=== PATIENT | male | born 1955 ===

== ENCOUNTER 2016-06-11 19:42 | Emergency (ER) | payer OTHER ==
[2016-06-11 19:42] VITALS: BMI 34.5
[2016-06-11 19:51] VITALS: RESP 20; TEMP 98.4
[2016-06-11] MEDS ORDERED: Albuterol-Ipratrop 3 mg / 0.5 (3 ml) UD INH STA (20:22)
--- NOTE | 2016-06-11 20:36 | ED PDOC ---
HPI: SOB/CHF/COPD Time Seen by Provider: 06/11/16 20:01 Chief Complaint (Nursing): Shortness Of Breath Chief Complaint (Provider): Shortness of breath History Per: Patient History/Exam Limitations: no limitations Onset/Duration Of Symptoms: Days (x2) Additional History Per: Patient Additional Complaint(s): Cliff Vela is a 60 year old male with a past medical history of hypertension , diabetes, high cholesterol and CVA who presents to the ED with chief complaints of difficulty breathing onset for two days prior to arrival. Asociated symptoms include mild diarrhea and bilateral leg swelling but denies any fever, cough, chest pain, abdomen pain and vomiting. Patient admits to taking medications as instructed. Primary care physician is Dr. Perkins Past Medical History Reviewed: Historical Data, Nursing Documentation, Vital Signs Vital Signs: Last Vital Signs Temp 98.4 F 06/11/16 19:47 Pulse 95 H 06/11/16 21:06 Resp 20 06/11/16 19:47 BP 135/81 06/11/16 21:56 Pulse Ox 99 06/11/16 21:06 - Medical History PMH: Bipolar Disorder, Depression, Diabetes, HTN, Hypercholesterolemia, Sleep Apnea Denies: HIV, Chronic Kidney Disease - Surgical History Surgical History: No Surg Hx - Family History Family History: States: Unknown Family Hx - Home Medications Home Medications: Ambulatory Orders Medication Instructions Recorded Aspirin [Aspirin EC] 81 mg PO DAILY 05/09/14 Atorvastatin Calcium [Lipitor] 20 mg PO DAILY 05/09/14 Carvedilol [Coreg] 25 mg PO BID 05/09/14 Divalproex [Carolin HENNESSY(*BID*)] 1,000 mg PO HS 05/09/14 Ergocalciferol (Vitamin D2) 50,000 unit PO Q7D 05/09/14 [Vitamin D2] GlipiZIDE [Glucotrol] 10 mg PO BID 05/09/14 Lisinopril 10 mg PO DAILY 05/09/14 MetFORMIN [glucoPHAGE] 1,000 mg PO BID 05/09/14 amLODIPine [Norvasc] 10 mg PO DAILY 05/09/14 Ascorbic Acid [Vitamin C 500 mg 500 mg PO DAILY #0 tab 05/10/14 Tab] Insulin Glargine, Recombina 36 units SQ HS 10/20/15 [Lantus] Albuterol HFA [Ventolin HFA 90 1 - 2 puff IH Q4 PRN #1 inhaler 11/15/15 mcg/actuation (8 g)] Multivitamin/Iron/Folic Acid 1 tab PO DAILY 11/15/15 [Centrum Complete Multivit Tab] fluPHENAZine [Prolixin] 2.5 mg PO HS 11/15/15 Meclizine [Meclizine*] 25 mg PO BID #30 tab 02/17/16 - Allergies Allergies/Adverse Reactions: Allergies Allergy/AdvReac Type Severity Reaction Status Date / Time hydrochlorothiazide AdvReac DIZZINESS Verified 10/20/15 06:45 Wells Criteria for PE - Wells Criteria for Pulmonary Embolism Clinical Signs and Symptoms of DVT: No P.E is #1 Diagnosis, or Equally Likely: No Heart Rate >100: No Immobilization at least 3 days;Surgery previous 4 weeks: No Previous, objectively diagnosed PE or DVT: No Hemoptysis: No Malignancy w/treatment within 6 months, or palliative: No Total Score: 0 Review of Systems ROS Statement: Except As Marked, All Systems Reviewed And Found Negative Constitutional: Negative for: Fever Cardiovascular: Negative for: Chest Pain Respiratory: Positive for: Shortness of Breath (x2days). Negative for: Cough Gastrointestinal: Positive for: Diarrhea (Mild for 2 days). Negative for: Nausea, Vomiting, Abdominal Pain Musculoskeletal: Positive for: Other (Bilateral leg swelling, pedal edema) Physical Exam - Reviewed Nursing Documentation Reviewed: Yes Vital Signs Reviewed: Yes - Physical Exam Appears: Positive for: Well, No Acute Distress. Negative for: Uncomfortable Head Exam: Positive for: ATRAUMATIC, NORMAL INSPECTION, NORMOCEPHALIC Skin: Positive for: Normal Color, Warm, Dry Eye Exam: Positive for: Normal appearance, EOMI, PERRL ENT: Positive for: Normal ENT Inspection Neck: Positive for: Normal, Painless ROM, Supple Cardiovascular/Chest: Positive for: Regular Rate, Rhythm, Chest Non Tender. Negative for: Murmur, Tachycardia Respiratory: Positive for: Decreased Breath Sounds (Bilaterally), Respiratory Distress (Mild). Negative for: Wheezing Gastrointestinal/Abdominal: Positive for: Normal Exam, Soft, Distended ( Chronically). Negative for: Tenderness Back: Positive for: Normal Inspection Extremity: Positive for: Normal ROM Neurologic/Psych: Positive for: Alert, Oriented - Laboratory Results Result Diagrams: 06/11/16 20:48 05/05/17 20:48 - ECG ECG: Positive for: Interpreted By Me, Viewed By Me ECG Rhythm: Positive for: Normal QRS, Normal ST Segment, Sinus Rhythm, Nonspecific Changes Rate: 95 O2 Sat by Pulse Oximetry: 99 (RA) Pulse Ox Interpretation: Normal - Radiology X-Ray: Interpreted by Me, Viewed By Me X-Ray Interpretation: No Acute Disease Medical Decision Making Medical Decision Makin: Initial Impression:CHF, Acute renal failure, COPD, Obstructive sleep apnea. Initial Plan: * EKG * B-type Natriuretic Peptide * Badic Metabolic panel * Thyroid stimulating hormone * Valproic acid * EKG ED Ednurtx * CBC with differentials * Chest one view RAD * Albuterol/ Ipratropium 3ml * Nitroglycerin 0.4mg * Re-Eval 2200 Pt is significantly improved. No dyspnea. Ambulated without dyspnea. Pt reports JAZZ. Pt reports cardiac echo done 5 m ago and that was normal. At this time there is no evidence of CHF or COPD. Dyspnea is resolved. Follow up with PCP in 3 days. Scribe Attestation: Documented by Remington Brower acting as a scribe for Dr. Aj Collins MD. Provider Scribe Attestation: All medical record entries made by the Scribe were at my direction and personally dictated by me. I have reviewed the chart and agree that the record accurately reflects my personal performance of the history, physical exam, medical decision making, and the department course for this patient. I have also personally directed, reviewed, and agree with the discharge instructions and disposition. Disposition - Clinical Impression Clinical Impression: Dyspnea, JAZZ (obstructive sleep apnea), Leg swelling - Patient ED Disposition Is Patient to be Admitted: Yes Doctor Will See Patient In The: Office Counseled Patient/Family Regarding: Studies Performed, Diagnosis, Need For Followup - Disposition Referrals: Qasim Perkins MD [Family Provider] - Disposition: Routine/Home Disposition Time: 22:30 Condition: GOOD Additional Instructions: Return for worsening. Follow up with your PCP in 2-3 days. Instructions: Leg Edema (ED)
[2016-06-11] MEDS ORDERED: Albuterol-Ipratrop 3 mg / 0.5 (3 ml) UD ONE (20:46)
[2016-06-11 21:04] VITALS: PULSE 95
[2016-06-11 21:09] LABS: BLOOD UREA NITROGEN 20 mg/dl (9-20); CALCIUM 9.3 mg/dL (8.4-10.2); CARBON DIOXIDE 26 mmol/L (22-30); CHLORIDE 105 mmol/L (98-107); GFR AFRICAN-AMERICAN > 60; GLUCOSE,RANDOM 183 mg/dL (75-110); POTASSIUM 4.2 MMOL/L (3.6-5.0); SODIUM 142 mmol/l (132-148)
[2016-06-11 21:11] LABS: BASO # 0.1 K/uL (0.0-0.2); BASO % 0.9 % (0.0-2.0); EOS # 0.1 K/uL (0.0-0.7); EOS % 1.9 % (0.0-4.0); HEMATOCRIT 38.3 % (35.0-51.0); LYMPH # 1.2 K/uL (1.0-4.3); LYMPH % 16.8 % (20.0-40.0); MEAN CORPUSCULAR HEMOGLOBIN 33.8 pg (27.0-31.0); MEAN CORPUSCULAR HGB CONC 34.5 g/dL (33.0-37.0); MEAN PLATELET VOLUME 8.7 fl (7.2-11.7); MONO # 0.6 K/uL (0.0-0.8); MONO % 7.8 % (0.0-10.0); NEUT # 5.3 K/uL (1.8-7.0); NEUT % 72.6 % (50.0-75.0); NRBC % 0.1 % (0.0-0.0); RED CELL DISTRIBUTION WIDTH 13.6 % (11.5-14.5); WHITE BLOOD COUNT 7.4 K/uL (4.8-10.8)
[2016-06-11 21:38] LABS: THYROID STIMULATING HORMONE 1.48 mIU/ML (0.46-4.68)
[2016-06-11 21:54] VITALS: BP 135/81
[2016-06-11 22:49] VITALS: O2SAT 99
--- NOTE | 2016-06-12 08:35 | RAD ---
PROCEDURE: CHEST RADIOGRAPH, 1 VIEW HISTORY: dyspnea COMPARISON: 11/15/2015 FINDINGS: LUNGS: Low lung volumes without focal infiltrate. Exam is limited by body habitus. PLEURA: No pneumothorax or pleural fluid seen. CARDIOVASCULAR: Normal. OSSEOUS STRUCTURES: No significant abnormalities. VISUALIZED UPPER ABDOMEN: Normal. OTHER FINDINGS: None. IMPRESSION: Limited exam secondary to body habitus and projection. Low lung volumes. No focal infiltrate or CHF seen. No new infiltrate from prior study.
--- NOTE | 2016-06-12 09:27 | CARD ---
APPROVED REPORT EKG Measurement Heart [id number] <Conclusion> Normal sinus rhythm Low voltage QRS Nonspecific T wave abnormality Abnormal ECG
== END 2016-06-11 23:09 | disposition home or self-care (01) ==
LOC: H.ER 19:42
DX: R06.00 Dyspnea, unspecified (principal); G47.30 Sleep apnea, unspecified; R60.0 Localized edema; E11.9 Type 2 diabetes mellitus without complications; E78.00 Pure hypercholesterolemia, unspecified; F31.9 Bipolar disorder, unspecified; I10 Essential (primary) hypertension; I50.9 Heart failure, unspecified; J44.9 Chronic obstructive pulmonary disease, unspecified; N17.9 Acute kidney failure, unspecified; Z79.4 Long term (current) use of insulin; Z79.82 Long term (current) use of aspirin; Z79.84 Long term (current) use of oral hypoglycemic drugs

== ENCOUNTER 2016-11-22 14:02 | Observation (INO) | payer OTHER ==
[2016-11-22 14:03] VITALS: BMI 34.5
--- NOTE | 2016-11-22 14:35 | ED PDOC ---
HPI: Psych/Substance Abuse Time Seen by Provider: 11/22/16 14:14 Chief Complaint (Nursing): Psychiatric Evaluation Chief Complaint (Provider): Psychiatric Evaluation History Per: Patient History/Exam Limitations: no limitations Onset/Duration Of Symptoms: Days Current Symptoms Are (Timing): Still Present Additional History Per: EMS Additional Complaint(s): Cliff is a 60 y/o male who was brought to the ED by EMS for psychiatric evaluation. Per EMS, they were called due to bizarre behavior, and were told patient is noncompliant with medications for bipolar disorder. Patient denies having any psychiatric history and reports he is only taking medications for blood sugar, blood pressure, and cholesterol. Requesting to go home, denies having any physical complaints. States he does not know why EMS was called. PMD: Provider TBD Past Medical History Reviewed: Historical Data, Nursing Documentation, Vital Signs Vital Signs: Last Vital Signs Temp 97 F L 11/22/16 14:14 Pulse 124 H 11/22/16 14:14 Resp 18 11/22/16 14:14 BP 183/101 H 11/22/16 14:14 Pulse Ox 96 11/22/16 14:14 - Medical History PMH: Bipolar Disorder, Depression, Diabetes, HTN, Hypercholesterolemia, Sleep Apnea Denies: HIV, Chronic Kidney Disease - Family History Family History: States: Unknown Family Hx - Home Medications Home Medications: Ambulatory Orders Medication Instructions Recorded Aspirin [Aspirin EC] 81 mg PO DAILY 05/09/14 Atorvastatin Calcium [Lipitor] 20 mg PO DAILY 05/09/14 Carvedilol [Coreg] 25 mg PO BID 05/09/14 Divalproex [Depakote DR(*BID*)] 1,000 mg PO HS 05/09/14 Ergocalciferol (Vitamin D2) 50,000 unit PO Q7D 05/09/14 [Vitamin D2] GlipiZIDE [Glucotrol] 10 mg PO BID 05/09/14 Lisinopril 10 mg PO DAILY 05/09/14 MetFORMIN [glucoPHAGE] 1,000 mg PO BID 05/09/14 amLODIPine [Norvasc] 10 mg PO DAILY 05/09/14 Ascorbic Acid [Vitamin C 500 mg 500 mg PO DAILY #0 tab 05/10/14 Tab] Insulin Glargine, Recombina 36 units SQ HS 10/20/15 [Lantus] Albuterol HFA [Ventolin HFA 90 1 - 2 puff IH Q4 PRN #1 inhaler 11/15/15 mcg/actuation (8 g)] Multivitamin/Iron/Folic Acid 1 tab PO DAILY 11/15/15 [Centrum Complete Multivit Tab] fluPHENAZine [Prolixin] 2.5 mg PO HS 11/15/15 Meclizine [Meclizine*] 25 mg PO BID #30 tab 02/17/16 - Allergies Allergies/Adverse Reactions: Allergies Allergy/AdvReac Type Severity Reaction Status Date / Time hydrochlorothiazide AdvReac DIZZINESS Verified 11/22/16 14:10 Review of Systems ROS Statement: Except As Marked, All Systems Reviewed And Found Negative Musculoskeletal: Negative for: Other (any injury/complaint) Physical Exam - Reviewed Nursing Documentation Reviewed: Yes Vital Signs Reviewed: Yes - Physical Exam Appears: Positive for: Well, Non-toxic, No Acute Distress Head Exam: Positive for: ATRAUMATIC, NORMAL INSPECTION, NORMOCEPHALIC Skin: Positive for: Normal Color, Warm, Dry Eye Exam: Positive for: Normal appearance Neck: Positive for: Normal Cardiovascular/Chest: Positive for: Regular Rate, Rhythm. Negative for: Murmur Respiratory: Positive for: Normal Breath Sounds. Negative for: Respiratory Distress Extremity: Positive for: Normal ROM. Negative for: Pedal Edema, Deformity Neurologic/Psych: Positive for: Alert, Oriented - Laboratory Results Result Diagrams: 11/22/16 17:00 11/22/16 17:00 - ECG O2 Sat by Pulse Oximetry: 96 (RA) Pulse Ox Interpretation: Normal Medical Decision Making Medical Decision Making: Time: 14:20 Initial Plan: --Crisis made aware of patient --Placed on 1:1 observation due to high risk of elopement Time: 16:44 --Urine drug screen --Alcohol serum --CMP --CBC --Urinalysis Time: 17:50 --Chest X-Ray --EKG Labs reviewed. Blood sugar is 350. Chest X-Ray read by me, no acute cardiopulmonary disease. Discussed case w/ private household worker. Patient is to be screened for JC. Time: 20:49 Accucheck done. Finger stick is 291. 21:12. Ordered 3 units SC Insulin. 22:30 Additional 4 units of SC insuling for glucose 270 ordered and patients lisinopril 10mg PO Endorsed pending re-evaluation of BP and glucose. Scribe Attestation: Documented by Shea Cordon, acting as a scribe for Mary Singer PA-C Provider Scribe Attestation: All medical record entries made by the Scribe were at my direction and personally dictated by me. I have reviewed the chart and agree that the record accurately reflects my personal performance of the history, physical exam, medical decision making, and the department course for this patient. I have also personally directed, reviewed, and agree with the discharge instructions and disposition. Disposition - Clinical Impression Clinical Impression: Schizophrenia - Patient ED Disposition Is Patient to be Admitted: Transfer of Care - Disposition Disposition: Transfer of Care Disposition Time: 23:30 Condition: GOOD Forms: [employer] (Azerbaijani)
[2016-11-22 17:23] LABS: HEMATOCRIT 42.4 % (35.0-51.0); MEAN CELL VOLUME 97.8 fl (80.0-94.0); MEAN CORPUSCULAR HEMOGLOBIN 33.4 pg (27.0-31.0); MEAN CORPUSCULAR HGB CONC 34.1 g/dL (33.0-37.0); RED CELL DISTRIBUTION WIDTH 13.6 % (11.5-14.5); WHITE BLOOD COUNT 8.2 K/uL (4.8-10.8)
[2016-11-22 17:31] LABS: URINE BACTERIA RARE (<OCC); URINE BILIRUBIN NEGATIVE (NEGATIVE); URINE BLOOD SMALL (NEGATIVE); URINE COLOR YELLOW (YELLOW); URINE GLUCOSE (UA) >=500 mg/dL (Normal); URINE KETONE 80 mg/dL (NEGATIVE); URINE LEUKOCYTE ESTERASE NEG Leu/uL (Negative); URINE PROTEIN 100 mg/dL (NEGATIVE)
[2016-11-22 17:35] LABS: ALB/GLOB RATIO 1.2 (1.0-2.1); ALCOHOL SERUM < 10 mg/dl (0-10); ALKALINE PHOSPHATASE 120 U/L (38-126); ALT/SGPT 82 U/L (21-72); AST/SGOT 66 U/L (17-59); BILIRUBIN,TOTAL 2.6 mg/dl (0.2-1.3); BLOOD UREA NITROGEN 17 mg/dl (9-20); CALCIUM 9.8 mg/dL (8.4-10.2); CARBON DIOXIDE 26 mmol/L (22-30); CHLORIDE 102 mmol/L (98-107); GFR AFRICAN-AMERICAN > 60; GLUCOSE,RANDOM 350 mg/dL (75-110); SODIUM 140 mmol/l (132-148); TOTAL PROTEIN 8.3 G/DL (6.3-8.2)
[2016-11-22 17:39] LABS: POTASSIUM 4.4 MMOL/L (3.6-5.0)
[2016-11-22 17:48] LABS: RBC URINE 12 /hpf (0-3); WBC URINE 3 /hpf (0-5)
[2016-11-22] MEDS ORDERED: Insulin Regular 100 units/ml SC STA ×2 (21:12→22:33)
[2016-11-22] MEDS ORDERED: Insulin Regular 100 units/ml ONE ×2 (21:15→22:46)
[2016-11-23] MEDS ORDERED: Sodium Chloride 0.9% 1,000 ML IV STA ×4 (00:24→04:37)
--- NOTE | 2016-11-23 03:02 | ED PDOC ---
- Laboratory Results Result Diagrams: 11/22/16 17:00 11/22/16 17:00 - ECG O2 Sat by Pulse Oximetry: 97 (RA) Pulse Ox Interpretation: Normal Medical Decision Making Medical Decision Making: Time: 00:00 --Patient was signed out to me by Dr. Antolin Valdez pending [facility] screening and reevaluation of Accuchecks. Time: 7:00 --Patient has had 2 consecutive Accuchecks below 200 as insisted upon by [facility] psychiatric staff. --Patient continues to be medically stable for psychiatric admission. --Patient is signed out by me to Dr. Brenner pending [facility] screening and reevaluation. Scribe Attestation: Documented by Estrada Baker, acting as a scribe for Tu Bond MD Provider Scribe Attestation: All medical record entries made by the Scribe were at my direction and personally dictated by me. I have reviewed the chart and agree that the record accurately reflects my personal performance of the history, physical exam, medical decision making, and the department course for this patient. I have also personally directed, reviewed, and agree with the discharge instructions and disposition. Disposition - Clinical Impression Clinical Impression: Schizophrenia - POA Present On Arrival: None - Disposition Disposition: Transfer of Care Disposition Time: 07:00 Condition: GOOD Forms: [employer] (Estonian) Patient Signed Over To: Griffin Brenner
[2016-11-23] MEDS ORDERED: Insulin Regular 100 units/ml IV ONE (04:37)
--- NOTE | 2016-11-23 08:02 | CARD ---
APPROVED REPORT EKG Measurement Heart [id number] <Conclusion> Normal sinus rhythm Anterior infarct, age undetermined Abnormal ECG
--- NOTE | 2016-11-23 09:44 | RAD ---
[place] [facility] [place]: 06/12/[place]. FINDINGS: LUNGS: The lungs are well inflated and clear. PLEURA: No significant pleural effusion identified, no pneumothorax apparent. CARDIOVASCULAR: Normal. OSSEOUS STRUCTURES: No significant abnormalities. VISUALIZED UPPER ABDOMEN: Normal. OTHER FINDINGS: None. IMPRESSION: No active pulmonary disease.
--- NOTE | 2016-11-23 09:54 | CP.PCM.CON ---
History of Present Illness - History of Present Illness History of Present Illness: Psychiatry Consult CC: You did this to me Following information is from the initial crisis evaluation as the data analyst report writer was unable to obtain any relevant information from the patient who was lethargic from being medicated due to acute agitation. He denied taking any medication, denied AH/VH/SI/HI. A + O x 1. HPI: 60 year old male entering into the ED with complaints from [employer] and mobile response. Patient was acting bizarre at his home yesterday. He was throwing items around the home and screaming off of the balcony. He was playing his music very loudly at the early hours of the morning. Patient's neighbors called the police who in turn called mobile response. Patient is not crazy he states and he did not do anything to anyone. Patient stated that he is doing well right now and that he does not need admission. Patient stated he is not Bipolar and that he has no psychiatric history. He did however report that he used to take Depakote 500 mg and also Prolixin. He denied any treatment except for going for medication at the clinic. He denied any SI/HI and A/V/T. He reported no sleep disturbances and stated he is eating well. He denied any legal history, trauma, and substance abuse history. Patient stated that there is a history of mental illness in his family such as his ex- and his aunt. He reported not knowing their diagnosis but felt it could be Bipolar. Patient also discussed a cousin on his mother's side as a drinker. Patient was orientated times two as he did not know his reason for being here. Patient was cooperative during the assessment. His thinking was bizarre and a times he was paranoid. Patient had a flight of ideas and was disorganized at times. CW discussed the admission process with the patient but he was not open to admission. Patient stated he wanted [place] be [place] [facility] Patient's daughter Arti Floyd [phone] stated that the patient has been off of medications for at least a month. She stated he is very religiously preoccupied at this time. She stated he is normally Methodist but when he is off of his medication he is a Ep[employer]. He will become psychotic when someone states that they are something other than Episcopal. Patient's daughter stated that he has been acting bizarre lately and was seen walking around [place] with his penis out and also acting erratic. He also walks around the town with no shoes on. Patient's daughter stated that the neighbors give her report of his behavior. He became aggressive with his and she became afraid and left the home for a few days. She stated that the patient will deny that he needs his medications. Gerald, from [employer] called and stated that the patient was in the house throwing items around and screaming off of the balcony. Patient was playing loud music and disturbing his neighbors so they called [place] Police [employer]. Patient has been acting bizarre by accounts of the neighbors. PMHx: HTN, HLD, DM MSE: Patient lying in bed, irritable, A + O x 1, Denies AH/VH/SI/HI, unable to obtain other pertinent info. Poor eye contact, speech loud and irritated. Impression: 60 yo male presents acutely decompensated w/ h/o Bipolar disorder vs psychotic disorder. Recommendations: -Screen for involuntary admission -Haldol 5 mg PO or IM/ Ativan 2 mg PO or IM/ Benadryl 50 mg PO or IM Q8 HR PRN agitation -Check Valproic Acid Level Past Patient History - Infectious Disease Hx of Infectious Diseases: None - Tetanus Immunizations Tetanus Immunization: Unknown - Past Medical History & Family History Past Medical History?: Yes - Past Social History Smoking Status: Never Smoked - CARDIAC Hx Hypercholesterolemia: Yes Hx Hypertension: Yes - PULMONARY Hx Sleep Apnea: Yes - NEUROLOGICAL HX Cerebrovascular Accident: No Hx Seizures: No - HEENT Hx HEENT Problems: No - RENAL Hx Chronic Kidney Disease: No - ENDOCRINE/METABOLIC Hx Endocrine Disorders: Yes Hx Diabetes Mellitus Type 2: Yes - HEMATOLOGICAL/ONCOLOGICAL Hx Human Immunodeficiency Virus (HIV): No - INTEGUMENTARY Hx Dermatological Problems: No - MUSCULOSKELETAL/RHEUMATOLOGICAL Hx Musculoskeletal Disorders: No Hx Falls: No - GASTROINTESTINAL Hx Gastrointestinal Disorders: No - GENITOURINARY/GYNECOLOGICAL Hx Sexually Transmitted Disorders: No - PSYCHIATRIC Hx Bipolar Disorder: Yes Hx Depression: Yes - SURGICAL HISTORY Hx Surgeries: Yes Other/Comment: Deviated septum - ANESTHESIA Hx Anesthesia: Yes Hx Anesthesia Reactions: No Meds Allergies/Adverse Reactions: Allergies Allergy/AdvReac Type Severity Reaction Status Date / Time hydrochlorothiazide AdvReac DIZZINESS Verified 11/22/16 14:10 Results - Vital Signs Recent Vital Signs: Last Vital Signs Temp 98.1 F 11/23/16 08:00 Pulse 78 11/23/16 08:00 Resp 18 11/23/16 08:00 BP 128/76 11/23/16 08:00 Pulse Ox 100 11/23/16 08:00 - Labs Result Diagrams: 11/22/16 17:00 11/22/16 17:00 Labs: Laboratory Results - last 24 hr 11/22/16 11/22/16 11/22/16 17:00 17:00 17:00 WBC 8.2 RBC 4.33 L Hgb 14.5 Hct 42.4 MCV 97.8 H MCH 33.4 H MCHC 34.1 RDW 13.6 Plt Count 198 Sodium 140 Potassium 4.4 Chloride 102 Carbon Dioxide 26 Anion Gap 16 BUN 17 Creatinine 0.9 Est GFR ( Amer) > 60 Est GFR (Non-Af Amer) > 60 POC Glucose (mg/dL) Random Glucose 350 H Calcium 9.8 Total Bilirubin 2.6 H AST 66 H ALT 82 H D Alkaline Phosphatase 120 Total Protein 8.3 H Albumin 4.5 Globulin 3.7 Albumin/Globulin Ratio 1.2 Urine Color Urine Clarity Urine pH Ur Specific [place] Urine Protein Urine Glucose (UA) Urine Ketones Urine Blood Urine Nitrate Urine Bilirubin Urine Urobilinogen Ur Leukocyte Esterase Urine RBC (Auto) Urine Microscopic WBC Ur Squamous Epith Cells Urine Bacteria Urine Opiates Screen Negative Urine Methadone Screen Negative Ur Barbiturates Screen Negative Ur Phencyclidine Scrn Negative Ur Amphetamines Screen Negative U Benzodiazepines Scrn Negative U Oth Cocaine Metabols Negative U Cannabinoids Screen Negative Alcohol, Quantitative < 10 11/22/16 11/22/16 11/22/16 17:00 20:49 22:16 WBC RBC Hgb Hct MCV MCH MCHC RDW Plt Count Sodium Potassium Chloride Carbon Dioxide Anion Gap BUN Creatinine Est GFR ( Amer) Est GFR (Non-Af Amer) POC Glucose (mg/dL) 291 H 270 H Random Glucose Calcium Total Bilirubin AST ALT Alkaline Phosphatase Total Protein Albumin Globulin Albumin/Globulin Ratio Urine Color Yellow Urine Clarity Clear Urine pH 5.0 Ur Specific [place] 1.035 H Urine Protein 100 Urine Glucose (UA) >=500 Urine Ketones 80 Urine Blood Small Urine Nitrate Negative Urine Bilirubin Negative Urine Urobilinogen 2.0 Ur Leukocyte Esterase Neg Urine RBC (Auto) 12 H Urine Microscopic WBC 3 Ur Squamous Epith Cells < 1 Urine Bacteria Rare Urine Opiates Screen Urine Methadone Screen Ur Barbiturates Screen Ur Phencyclidine Scrn Ur Amphetamines Screen U Benzodiazepines Scrn U Oth Cocaine Metabols U Cannabinoids Screen Alcohol, Quantitative 11/22/16 23:32 WBC RBC Hgb Hct MCV MCH MCHC RDW Plt Count Sodium Potassium Chloride Carbon Dioxide Anion Gap BUN Creatinine Est GFR ( Amer) Est GFR (Non-Af Amer) POC Glucose (mg/dL) 282 H Random Glucose Calcium Total Bilirubin AST ALT Alkaline Phosphatase Total Protein Albumin Globulin Albumin/Globulin Ratio Urine Color Urine Clarity Urine pH Ur Specific [place] Urine Protein Urine Glucose (UA) Urine Ketones Urine Blood Urine Nitrate Urine Bilirubin Urine Urobilinogen Ur Leukocyte Esterase Urine RBC (Auto) Urine Microscopic WBC Ur Squamous Epith Cells Urine Bacteria Urine Opiates Screen Urine Methadone Screen Ur Barbiturates Screen Ur Phencyclidine Scrn Ur Amphetamines Screen U Benzodiazepines Scrn U Oth Cocaine Metabols U Cannabinoids Screen Alcohol, Quantitative
--- NOTE | 2016-11-23 13:43 | ED PDOC ---
- Laboratory Results Result Diagrams: 11/22/16 17:00 11/22/16 17:00 - ECG O2 Sat by Pulse Oximetry: 100 Disposition - Clinical Impression Clinical Impression: Schizophrenia - POA Present On Arrival: None - Disposition Disposition: Transfer of Care Disposition Time: 17:08 Condition: GOOD Forms: [employer] (Serbian) Patient Signed Over To: Antolin Valdez
--- NOTE | 2016-11-23 17:21 | ED PDOC ---
- Laboratory Results Result Diagrams: 11/25/16 05:55 11/25/16 05:55 - ECG O2 Sat by Pulse Oximetry: 100 Medical Decision Making Medical Decision Making: Time: 1700 --Patient was endorsed to provider by Dr. Griffin Brenner. [place] [facility] [place] 0000 Patient will be signed out to Dr. Collins pending [facility] [place]. Scribe Attestation: Documented by Whitney Arias, acting as a scribe for Antolin Valdez MD. Provider Scribe Attestation: All medical record entries made by the Scribe were at my direction and personally dictated by me. I have reviewed the chart and agree that the record accurately reflects my personal performance of the history, physical exam, medical decision making, and the department course for this patient. I have also personally directed, reviewed, and agree with the discharge instructions and disposition. Disposition - Clinical Impression Clinical Impression: Schizophrenia, Uncontrolled diabetes mellitus - POA Present On Arrival: None - Disposition Disposition: Transfer of Care Disposition Time: 23:00 Condition: FAIR Patient Signed Over To: Aj Collins (at 0000) Handoff Comments: [place] [facility] [place]
[2016-11-23] MEDS ORDERED: Insulin Regular 100 units/ml SC STA (23:16)
--- NOTE | 2016-11-24 02:03 | ED PDOC ---
- Laboratory Results Result Diagrams: 11/22/16 17:00 11/22/16 17:00 - ECG O2 Sat by Pulse Oximetry: 97 Medical Decision Making Medical Decision Makin Receiving sign out: Patient signed out to me by Dr. Valdez pending [facility] bed availability and glucose stabilization 0700 Patient will be signed out to Tuan Silva MD pending [facility] bed availability. Scribe Attestation: Documented by Africa Le acting as a scribe for Aj Collins MD. Provider Attestation: All medical record entries made by the Scribe were at my direction and personally dictated by me. I have reviewed the chart and agree that the record accurately reflects my personal performance of the history, physical exam, medical decision making, and the department course for this patient. I have also personally directed, reviewed, and agree with the discharge instructions and disposition. Disposition Doctor Will See Patient In The: Office Counseled Patient/Family Regarding: Studies Performed, Diagnosis - Clinical Impression Clinical Impression: Schizophrenia - POA Present On Arrival: None - Disposition Disposition: Transfer of Care Disposition Time: 07:00 Condition: FAIR Forms: Orad (Algerian) Patient Signed Over To: Tuan Silva (at 0700) Handoff Comments: Pending [facility] bed availability
--- NOTE | 2016-11-24 07:36 | ED PDOC ---
- Laboratory Results Result Diagrams: 11/22/16 17:00 11/22/16 17:00 - ECG O2 Sat by Pulse Oximetry: 97 (RA) Pulse Ox Interpretation: Normal - Progress ED Course And Treament: 1214: Stable. Pt. with mild headaches, not worst in his life. No numbness, tingles, neck pain. Given tylenol. Pt. sugar 319 after eating breakfast. Will give insulin. Psychiatrist saw pt. and wants fluphenazine 2mg as pharamacy does not have 2.5mg. 1650: Stable. Dr. Cardoso to fu on [facility] bed. Monitor blood sugar. Medical Decision Making Medical Decision Makin:00 Patient signed over to me, Tuan Silva MD from Aj Collins MD pending repeat Accucheck. Accepted for [facility] bed availability. Scribe Attestation: Documented by Caitie Ramirez, acting as a scribe for Tuan iSlva MD. Provider Scribe Attestation: All medical record entries made by the Scribe were at my direction and personally dictated by me. I have reviewed the chart and agree that the record accurately reflects my personal performance of the history, physical exam, medical decision making, and the department course for this patient. I have also personally directed, reviewed, and agree with the discharge instructions and disposition. Disposition - Clinical Impression Clinical Impression: Schizophrenia - POA Present On Arrival: None - Disposition Disposition: Transfer of Care Disposition Time: 16:51 Condition: FAIR Patient Signed Over To: Iliana Cardoso
--- NOTE | 2016-11-24 12:03 | CP.PCM.CON ---
History of Present Illness - History of Present Illness History of Present Illness: Psychiatry Consult follow-up CC: I'm a preacher Today patient was more agreeable talking to mortgage or loan underwriter. He discussed how God speaks to him and gives him messages on how he should be a preacher. Patient is refusing to take Depakote, but was agreeable to taking Prolixin 2.5 mg PO, which he used to take in the past. He has been observed talking to himself and is internally preoccupied at times. HPI: 60 year old male entering into the ED with complaints from [employer] and [employer]. Patient was acting bizarre at his home yesterday. He was throwing items around the home and screaming off of the balcony. He was playing his music very loudly at the early hours of the morning. Patient's neighbors called the police who in turn called [employer]. Patient is not crazy he states and he did not do anything to anyone. Patient stated that he is doing well right now and that he does not need admission. Patient stated he is not Bipolar and that he has no psychiatric history. He did however report that he used to take Depakote 500 mg and also Prolixin. He denied any treatment except for going for medication at the clinic. He denied any SI/HI and A/V/T. He reported no sleep disturbances and stated he is eating well. He denied any legal history, trauma, and substance abuse history. Patient stated that there is a history of mental illness in his family such as his ex- and his aunt. He reported not knowing their diagnosis but felt it could be Bipolar. Patient also discussed a cousin on his mother's side as a drinker. Patient was orientated times two as he did not know his reason for being here. Patient was cooperative during the assessment. His thinking was bizarre and a times he was paranoid. Patient had a flight of ideas and was disorganized at times. CW discussed the admission process with the patient but he was not open to admission. Patient stated he wanted to be screened for [facility]. Patient's daughter Arti Floyd [phone] stated that the patient has been off of medications for at least a month. She stated he is very religiously preoccupied at this time. She stated he is normally Episcopalian but when he is off of his medication he is a Jehovah'S Witness. He will become psychotic when someone states that they are something other than Jehovah'S Witness. Patient's daughter stated that he has been acting bizarre lately and was seen walking around [place] with his penis out and also acting erratic. He also walks around the town with no shoes on. Patient's daughter stated that the neighbors give her report of his behavior. He became aggressive with his and she became afraid and left the home for a few days. She stated that the patient will deny that he needs his medications. Gerald, from [employer] called and stated that the patient was in the house throwing items around and screaming off of the balcony. Patient was playing loud music and disturbing his neighbors so they called [place] [employer]. Patient has been acting bizarre by accounts of the neighbors. PMHx: HTN, HLD, DM Impression: 60 yo male presents acutely decompensated w/ h/o Bipolar disorder vs psychotic disorder. Recommendations: -Patient accepted for involuntary admission to [facility], pending bed -Prolixin 2.5 mg PO once -Haldol 5 mg PO or IM/ Ativan 2 mg PO or IM/ Benadryl 50 mg PO or IM Q8 HR PRN agitation -Check Valproic Acid Level Past Patient History - Infectious Disease Hx of Infectious Diseases: None - Tetanus Immunizations Tetanus Immunization: Unknown - Past Medical History & Family History Past Medical History?: Yes - Past Social History Smoking Status: Never Smoked - CARDIAC Hx Hypercholesterolemia: Yes Hx Hypertension: Yes - PULMONARY Hx Sleep Apnea: Yes - NEUROLOGICAL HX Cerebrovascular Accident: No Hx Seizures: No - HEENT Hx HEENT Problems: No - RENAL Hx Chronic Kidney Disease: No - ENDOCRINE/METABOLIC Hx Endocrine Disorders: Yes Hx Diabetes Mellitus Type 2: Yes - HEMATOLOGICAL/ONCOLOGICAL Hx Human Immunodeficiency Virus (HIV): No - INTEGUMENTARY Hx Dermatological Problems: No - MUSCULOSKELETAL/RHEUMATOLOGICAL Hx Musculoskeletal Disorders: No Hx Falls: No - GASTROINTESTINAL Hx Gastrointestinal Disorders: No - GENITOURINARY/GYNECOLOGICAL Hx Sexually Transmitted Disorders: No - PSYCHIATRIC Hx Bipolar Disorder: Yes Hx Depression: Yes - SURGICAL HISTORY Hx Surgeries: Yes Other/Comment: Deviated septum - ANESTHESIA Hx Anesthesia: Yes Hx Anesthesia Reactions: No Meds Allergies/Adverse Reactions: Allergies Allergy/AdvReac Type Severity Reaction Status Date / Time hydrochlorothiazide AdvReac DIZZINESS Verified 11/22/16 14:10 Results - Vital Signs Recent Vital Signs: Last Vital Signs Temp 98.4 F 11/24/16 08:03 Pulse 91 H 11/24/16 08:03 Resp 20 11/24/16 08:03 BP 150/95 H 11/24/16 08:03 Pulse Ox 98 11/24/16 08:03 - Labs Result Diagrams: 11/22/16 17:00 11/22/16 17:00 Labs: Laboratory Results - last 24 hr 11/23/16 11/23/16 11/23/16 01:59 03:21 04:09 POC Glucose (mg/dL) 230 H 199 H 231 H 11/23/16 11/23/16 11/23/16 04:33 05:16 05:44 POC Glucose (mg/dL) 240 H 106 146 H 11/23/16 11/23/16 11/23/16 08:25 09:44 23:08 POC Glucose (mg/dL) 206 H 226 H 288 H 11/24/16 11/24/16 11/24/16 00:29 01:50 03:27 POC Glucose (mg/dL) 262 H 266 H 256 H
[2016-11-24] MEDS ORDERED: Insulin Regular 100 units/ml SC STA ×2 (12:12→18:04)
[2016-11-24] MEDS ORDERED: Insulin Regular 100 units/ml ONE ×2 (12:27→18:05)
--- NOTE | 2016-11-24 17:25 | ED PDOC ---
- Laboratory Results Result Diagrams: 11/24/16 19:07 11/22/16 17:00 - ECG O2 Sat by Pulse Oximetry: 97 (RA) Medical Decision Making Medical Decision Making: Time: 1700 --Patient was endorsed to provider by Dr. Tuan Silva. Pending [facility] available bed. 1900 Pt's glucose persistently elevated. Reviewed chart and patient required multiple doses of Insulin for control. Previous UA also demonstrated ketones. Not stable for transfer to psychiatric unit at this time. DENILSON Smyth for hospitalization for uncontrolled diabetes. Scribe Attestation: Documented by Whitney Arias, acting as a scribe for Iliana Cardoso MD. Provider Scribe Attestation: All medical record entries made by the Scribe were at my direction and personally dictated by me. I have reviewed the chart and agree that the record accurately reflects my personal performance of the history, physical exam, medical decision making, and the department course for this patient. I have also personally directed, reviewed, and agree with the discharge instructions and disposition. Disposition - Clinical Impression Clinical Impression: Schizophrenia, Uncontrolled diabetes mellitus - POA Present On Arrival: Poor Glycemic Control - Disposition Disposition: Admitted as In-Patient Disposition Time: 17:00 Condition: FAIR
[2016-11-24] MEDS ORDERED: Sodium Chloride 0.9% 1,000 ML IV STA (18:42)
[2016-11-24 19:12] LABS: BASO # 0.1 K/uL (0.0-0.2); BASO % 0.9 % (0.0-2.0); EOS # 0.1 K/uL (0.0-0.7); HEMATOCRIT 40.6 % (35.0-51.0); LYMPH % 15.7 % (20.0-40.0); MEAN CELL VOLUME 97.9 fl (80.0-94.0); MEAN CORPUSCULAR HEMOGLOBIN 32.6 pg (27.0-31.0); MEAN CORPUSCULAR HGB CONC 33.3 g/dL (33.0-37.0); MEAN PLATELET VOLUME 8.7 fl (7.2-11.7); MONO # 0.5 K/uL (0.0-0.8); NEUT # 4.8 K/uL (1.8-7.0); NEUT % 74.4 % (50.0-75.0); RED CELL DISTRIBUTION WIDTH 13.3 % (11.5-14.5); WHITE BLOOD COUNT 6.5 K/uL (4.8-10.8)
[2016-11-24] MEDS ORDERED: Albuterol HFA 90 mcg/actuation (8 g) IH PRN (19:14)
[2016-11-24] MEDS ORDERED: Ergocalciferol 50,000 Intl Units Cap PO SCH (19:15)
[2016-11-24 19:16] LABS: VENOUS BLOOD GAS PCO2 45 mmHg (40-60); VENOUS BLOOD PH 7.38 (7.32-7.43)
[2016-11-24 19:34] LABS: ALB/GLOB RATIO 1.2 (1.0-2.1); ALKALINE PHOSPHATASE 102 U/L (38-126); ALT/SGPT 64 U/L (21-72); AST/SGOT 30 U/L (17-59); BILIRUBIN,TOTAL 0.9 mg/dl (0.2-1.3); BLOOD UREA NITROGEN 15 mg/dl (9-20); CARBON DIOXIDE 25 mmol/L (22-30); CHLORIDE 102 mmol/L (98-107); GFR AFRICAN-AMERICAN > 60; GLUCOSE,RANDOM 389 mg/dL (75-110); MAGNESIUM 1.5 MG/DL (1.6-2.3); PHOSPHOROUS 3.1 mg/dl (2.5-4.5); POTASSIUM 4.3 MMOL/L (3.6-5.0); SODIUM 137 mmol/l (132-148); TOTAL PROTEIN 7.1 G/DL (6.3-8.2)
--- NOTE | 2016-11-24 20:14 | CP.PCM.HP ---
History of Present Illness - History of Present Illness History of Present Illness: 60 yo male with history of DM2, HTN and Bipolar DO was brought in by EMS because of bizarre behavior. He was screened for admission to [facility] but could not be medically cleared because of persistent hyperglycemia. Present on Admission - Present on Admission Any Indicators Present on Admission: No History of DVT/PE: No History of Uncontrolled Diabetes: No Urinary Catheter: No Decubitus Ulcer Present: No Review of Systems - Review of Systems All systems: reviewed and no additional remarkable complaints except (aside from those mentioned above, 12 point system review were negative by me) Past Patient History - Infectious Disease Hx of Infectious Diseases: None - Tetanus Immunizations Tetanus Immunization: Unknown - Past Medical History & Family History Past Medical History?: Yes - Past Social History Smoking Status: Never Smoked Alcohol: None Drugs: Denies Home Situation {Lives}: With Family - CARDIAC Hx Hypercholesterolemia: Yes Hx Hypertension: Yes - PULMONARY Hx Sleep Apnea: Yes - NEUROLOGICAL HX Cerebrovascular Accident: No Hx Seizures: No - HEENT Hx HEENT Problems: No - RENAL Hx Chronic Kidney Disease: No - ENDOCRINE/METABOLIC Hx Endocrine Disorders: Yes Hx Diabetes Mellitus Type 2: Yes - HEMATOLOGICAL/ONCOLOGICAL Hx Human Immunodeficiency Virus (HIV): No - INTEGUMENTARY Hx Dermatological Problems: No - MUSCULOSKELETAL/RHEUMATOLOGICAL Hx Musculoskeletal Disorders: No Hx Falls: No - GASTROINTESTINAL Hx Gastrointestinal Disorders: No - GENITOURINARY/GYNECOLOGICAL Hx Sexually Transmitted Disorders: No - PSYCHIATRIC Hx Bipolar Disorder: Yes Hx Depression: Yes - SURGICAL HISTORY Hx Surgeries: Yes Other/Comment: Deviated septum - ANESTHESIA Hx Anesthesia: Yes Hx Anesthesia Reactions: No Meds Allergies/Adverse Reactions: Allergies Allergy/AdvReac Type Severity Reaction Status Date / Time hydrochlorothiazide AdvReac DIZZINESS Verified 11/22/16 14:10 Physical Exam - Constitutional Appears: No Acute Distress - Head Exam Head Exam: ATRAUMATIC - Eye Exam Eye Exam: absent: Scleral icterus - ENT Exam ENT Exam: Mucous Membranes Moist - Neck Exam Neck exam: Negative for: Meningismus - Respiratory Exam Respiratory Exam: absent: Rhonchi, Wheezes, Respiratory Distress - Cardiovascular Exam Cardiovascular Exam: REGULAR RHYTHM, +S1, +S2 - GI/Abdominal Exam GI & Abdominal Exam: Soft. absent: Tenderness - Rectal Exam Rectal Exam: Deferred - Neurological Exam Neurological exam: Alert, Oriented x3 - Psychiatric Exam Psychiatric exam: Normal Affect - Skin Skin Exam: Dry, Intact Results - Vital Signs Recent Vital Signs: Last Vital Signs Temp 98.0 F 11/24/16 19:36 Pulse 99 H 11/24/16 19:36 Resp 20 11/24/16 19:36 BP 155/81 H 11/24/16 19:36 Pulse Ox 97 11/24/16 19:36 - Labs Result Diagrams: 11/24/16 19:07 11/24/16 19:20 Labs: Laboratory Results - last 24 hr 11/23/16 11/23/16 11/23/16 01:59 03:21 04:09 WBC RBC Hgb Hct MCV MCH MCHC RDW Plt Count MPV Neut % (Auto) Lymph % (Auto) [place] % (Auto) Eos % (Auto) Baso % (Auto) Neut # Lymph # [place] # Eos # Baso # pO2 VBG pH VBG pCO2 VBG HCO3 VBG Total CO2 VBG O2 Sat (Calc) VBG Base Excess VBG Potassium Sodium Chloride Glucose Lactate FiO2 Blood Gas Comments Crit Value Called To Crit Value Called By Crit Value Read Back Blood Gas Notified Time Potassium Carbon Dioxide Anion Gap BUN Creatinine Est GFR ( Amer) Est GFR (Non-Af Amer) POC Glucose (mg/dL) 230 H 199 H 231 H Random Glucose Calcium Phosphorus Magnesium Total Bilirubin AST ALT Alkaline Phosphatase Total Protein Albumin Globulin Albumin/Globulin Ratio Venous Blood Potassium 11/23/16 11/23/16 11/23/16 04:33 05:16 05:44 WBC RBC Hgb Hct MCV MCH MCHC RDW Plt Count MPV Neut % (Auto) Lymph % (Auto) [place] % (Auto) Eos % (Auto) Baso % (Auto) Neut # Lymph # [place] # Eos # Baso # pO2 VBG pH VBG pCO2 VBG HCO3 VBG Total CO2 VBG O2 Sat (Calc) VBG Base Excess VBG Potassium Sodium Chloride Glucose Lactate FiO2 Blood Gas Comments Crit Value Called To Crit Value Called By Crit Value Read Back Blood Gas Notified Time Potassium Carbon Dioxide Anion Gap BUN Creatinine Est GFR ( Amer) Est GFR (Non-Af Amer) POC Glucose (mg/dL) 240 H 106 146 H Random Glucose Calcium Phosphorus Magnesium Total Bilirubin AST ALT Alkaline Phosphatase Total Protein Albumin Globulin Albumin/Globulin Ratio Venous Blood Potassium 11/23/16 11/23/16 11/23/16 08:25 09:44 23:08 WBC RBC Hgb Hct MCV MCH MCHC RDW Plt Count MPV Neut % (Auto) Lymph % (Auto) [place] % (Auto) Eos % (Auto) Baso % (Auto) Neut # Lymph # [place] # Eos # Baso # pO2 VBG pH VBG pCO2 VBG HCO3 VBG Total CO2 VBG O2 Sat (Calc) VBG Base Excess VBG Potassium Sodium Chloride Glucose Lactate FiO2 Blood Gas Comments Crit Value Called To Crit Value Called By Crit Value Read Back Blood Gas Notified Time Potassium Carbon Dioxide Anion Gap BUN Creatinine Est GFR ( Amer) Est GFR (Non-Af Amer) POC Glucose (mg/dL) 206 H 226 H 288 H Random Glucose Calcium Phosphorus Magnesium Total Bilirubin AST ALT Alkaline Phosphatase Total Protein Albumin Globulin Albumin/Globulin Ratio Venous Blood Potassium 11/24/16 11/24/16 11/24/16 00:29 01:50 03:27 WBC RBC Hgb Hct MCV MCH MCHC RDW Plt Count MPV Neut % (Auto) Lymph % (Auto) [place] % (Auto) Eos % (Auto) Baso % (Auto) Neut # Lymph # [place] # Eos # Baso # pO2 VBG pH VBG pCO2 VBG HCO3 VBG Total CO2 VBG O2 Sat (Calc) VBG Base Excess VBG Potassium Sodium Chloride Glucose Lactate FiO2 Blood Gas Comments Crit Value Called To Crit Value Called By Crit Value Read Back Blood Gas Notified Time Potassium Carbon Dioxide Anion Gap BUN Creatinine Est GFR ( Amer) Est GFR (Non-Af Amer) POC Glucose (mg/dL) 262 H 266 H 256 H Random Glucose Calcium Phosphorus Magnesium Total Bilirubin AST ALT Alkaline Phosphatase Total Protein Albumin Globulin Albumin/Globulin Ratio Venous Blood Potassium 11/24/16 11/24/16 11/24/16 19:07 19:10 19:20 WBC 6.5 RBC 4.15 L Hgb 13.5 Hct 40.6 MCV 97.9 H MCH 32.6 H MCHC 33.3 RDW 13.3 Plt Count 170 MPV 8.7 Neut % (Auto) 74.4 Lymph % (Auto) 15.7 L [place] % (Auto) 8.0 Eos % (Auto) 1.0 Baso % (Auto) 0.9 Neut # 4.8 Lymph # 1.0 [place] # 0.5 Eos # 0.1 Baso # 0.1 pO2 44 VBG pH 7.38 VBG pCO2 45 VBG HCO3 25.2 VBG Total CO2 28.0 VBG O2 Sat (Calc) 85.4 H VBG Base Excess 1.0 VBG Potassium 4.2 Sodium 135.0 137 Chloride 101.0 102 Glucose 431 H* Lactate 1.4 FiO2 21.0 Blood Gas Comments Copy given to rn Crit Value Called To Bebe hawthorne rn Crit Value Called By 292 Crit Value Read Back Y Blood Gas Notified Time 1914 Potassium 4.3 Carbon Dioxide 25 Anion Gap 14 BUN 15 Creatinine 0.9 Est GFR ( Amer) > 60 Est GFR (Non-Af Amer) > 60 POC Glucose (mg/dL) Random Glucose 389 H Calcium 9.0 Phosphorus 3.1 Magnesium 1.5 L Total Bilirubin 0.9 AST 30 ALT 64 Alkaline Phosphatase 102 Total Protein 7.1 Albumin 3.9 Globulin 3.2 Albumin/Globulin Ratio 1.2 Venous Blood Potassium 4.2 Assessment & Plan (1) Uncontrolled diabetes mellitus Status: Acute Comment: place on observation in med/surg. continue Metformin 1000mg PO BID. Glipizide 10mg PO BID. Levemir 34 units SC HS. ACHS with Lispro coverage. HgA1C, BMP in am. endocrinology consult with Dr Villeda (2) HTN (hypertension) Status: Chronic Priority: Medium Comment: BP slightly elevated. Coreg 25mg PO BID. Amlodipine 10mg PO daily. Lisinopril 10mg PO daily (3) Schizophrenia Status: Acute Comment: psyche consult
[2016-11-24 21:54] LABS: RBC URINE 2 /hpf (0-3); URINE BILIRUBIN NEGATIVE (NEGATIVE); URINE BLOOD NEGATIVE (NEGATIVE); URINE COLOR STRAW (YELLOW); URINE GLUCOSE (UA) >=500 mg/dL (Normal); URINE KETONE NEGATIVE (NEGATIVE); URINE LEUKOCYTE ESTERASE NEG Leu/uL (Negative); URINE PROTEIN NEGATIVE (NEGATIVE); URINE UROBILINOGEN 0.2-1.0 mg/dL (0.2-1.0); WBC URINE 1 /hpf (0-5)
[2016-11-24] MEDS ORDERED: FLUPHENAZINE PO SCH (22:00)
[2016-11-24] MEDS ORDERED: Insulin Lispro (humaLOG) 100 Units/ml Inj SC SCH (22:00)
[2016-11-24] MEDS ORDERED: Insulin Detemir 100 Units/ml Inj SC SCH (22:00)
[2016-11-24] MEDS: Divalproex 500 mg DR(BID formulation) PO SCH (22:01)
[2016-11-25 06:33] LABS: BASO % 0.7 % (0.0-2.0); EOS # 0.1 K/uL (0.0-0.7); EOS % 1.4 % (0.0-4.0); HEMATOCRIT 37.5 % (35.0-51.0); LYMPH # 1.1 K/uL (1.0-4.3); LYMPH % 19.2 % (20.0-40.0); MEAN CELL VOLUME 97.7 fl (80.0-94.0); MEAN CORPUSCULAR HEMOGLOBIN 33.1 pg (27.0-31.0); MEAN CORPUSCULAR HGB CONC 33.9 g/dL (33.0-37.0); MEAN PLATELET VOLUME 8.9 fl (7.2-11.7); MONO # 0.4 K/uL (0.0-0.8); MONO % 7.8 % (0.0-10.0); NEUT % 70.9 % (50.0-75.0); RED CELL DISTRIBUTION WIDTH 13.5 % (11.5-14.5); WHITE BLOOD COUNT 5.6 K/uL (4.8-10.8)
[2016-11-25 06:39] LABS: BLOOD UREA NITROGEN 11 mg/dl (9-20); CALCIUM 8.4 mg/dL (8.4-10.2); CARBON DIOXIDE 27 mmol/L (22-30); CHLORIDE 108 mmol/L (98-107); GFR AFRICAN-AMERICAN > 60; GLUCOSE,RANDOM 162 mg/dL (75-110); SODIUM 144 mmol/l (132-148)
[2016-11-25] MEDS: Insulin Lispro (humaLOG) 100 Units/ml Inj SC SCH ×6 (08:53→21:17)
[2016-11-25] MEDS ORDERED: Enoxaparin 40 mg Syringe SC SCH (09:00)
[2016-11-25] MEDS ORDERED: Multivitamin With Minerals Tab PO SCH (09:00)
[2016-11-25] MEDS ORDERED: Pantoprazole 40 mg EC Tab PO SCH (09:00)
--- NOTE | 2016-11-25 10:06 | CP.PCM.CON ---
History of Present Illness - History of Present Illness History of Present Illness: Psychiatry Consult follow-up; patient initially seen in the ER CC: I'm a preacher Patient continues to be hyper-jain and grandiose. He believes God talks to him and that he is going to be a Rastafari Maria. He does not believe he has any mental health issues. He denies adverse effects to Proxilin and is agreeable to increasing the dosage. He does not want to be admitted to the psychiatric unit because he is insistent that nothing is wrong with him and that he needs to go to [employer] to train as a maria. HPI: 60 year old male entering into the ED with complaints from [facility] and [facility]. Patient was acting bizarre at his home yesterday. He was throwing items around the home and screaming off of the balcony. He was playing his music very loudly at the early hours of the morning. Patient's neighbors called the police who in turn called [email or web address]. Patient is not crazy he states and he did not do anything to anyone. Patient stated that he is doing well right now and that he does not need admission. Patient stated he is not Bipolar and that he has no psychiatric history. He did however report that he used to take Depakote 500 mg and also Prolixin. He denied any treatment except for going for medication at the clinic. He denied any SI/HI and A/V/T. He reported no sleep disturbances and stated he is eating well. He denied any legal history, trauma, and substance abuse history. Patient stated that there is a history of mental illness in his family such as his ex- and his aunt. He reported not knowing their diagnosis but felt it could be Bipolar. Patient also discussed a cousin on his mother's side as a drinker. Patient was orientated times two as he did not know his reason for being here. Patient was cooperative during the assessment. His thinking was bizarre and a times he was paranoid. Patient had a flight of ideas and was disorganized at times. CW discussed the admission process with the patient but he was not open to admission. Patient stated he wanted to be screened for JC. Patient's daughter Arti Floyd [phone] stated that the patient has been off of medications for at least a month. She stated he is very religiously preoccupied at this time. She stated he is normally Bahai but when he is off of his medication he is a Rastafari. He will become psychotic when someone states that they are something other than Rastafari. Patient's daughter stated that he has been acting bizarre lately and was seen walking around [place] with his penis out and also acting erratic. He also walks around the town with no shoes on. Patient's daughter stated that the neighbors give her report of his behavior. He became aggressive with his and she became afraid and left the home for a few days. She stated that the patient will deny that he needs his medications. Gerald, from [employer] called and stated that the patient was in the house throwing items around and screaming off of the balcony. Patient was playing loud music and disturbing his neighbors so they called [place] [employer]. Patient has been acting bizarre by accounts of the neighbors. PMHx: HTN, HLD, DM MSE: A+ O x 3, calm, good eye contact, evasive at times, but overall cooperative with interview, mood "okay" affect- broad, thought content- + delusions, jain preoccupation, thought process- coherent, denies AH/VH/SI/ HI, poor I/J Impression: 60 yo male presents acutely decompensated w/ h/o Bipolar disorder vs Schizoaffective Disorder. Recommendations: -Patient accepted for involuntary admission to [facility], pending bed -Prolixin 2.5 mg PO Q12hr -Haldol 5 mg PO or IM/ Ativan 2 mg PO or IM/ Benadryl 50 mg PO or IM Q8 HR PRN agitation Past Patient History - Infectious Disease Hx of Infectious Diseases: None - Tetanus Immunizations Tetanus Immunization: Unknown - Past Medical History & Family History Past Medical History?: Yes - Past Social History Smoking Status: Never Smoked - CARDIAC Hx Cardiac Disorders: Yes Hx Hypercholesterolemia: Yes Hx Hypertension: Yes - PULMONARY Hx Respiratory Disorders: Yes Hx Sleep Apnea: Yes - NEUROLOGICAL Hx Neurological Disorder: No - HEENT Hx HEENT Problems: No - RENAL Hx Chronic Kidney Disease: No - ENDOCRINE/METABOLIC Hx Endocrine Disorders: Yes Hx Diabetes Mellitus Type 2: Yes - HEMATOLOGICAL/ONCOLOGICAL Hx Blood Disorders: No Hx Human Immunodeficiency Virus (HIV): No - INTEGUMENTARY Hx Dermatological Problems: No - MUSCULOSKELETAL/RHEUMATOLOGICAL Hx Musculoskeletal Disorders: No Hx Falls: No - GASTROINTESTINAL Hx Gastrointestinal Disorders: No - GENITOURINARY/GYNECOLOGICAL Hx Genitourinary Disorders: Yes - PSYCHIATRIC Hx Psychophysiologic Disorder: Yes Hx Bipolar Disorder: Yes Hx Depression: Yes - SURGICAL HISTORY Hx Surgeries: Yes Other/Comment: Deviated septum - ANESTHESIA Hx Anesthesia: Yes Hx Anesthesia Reactions: No Meds Allergies/Adverse Reactions: Allergies Allergy/AdvReac Type Severity Reaction Status Date / Time hydrochlorothiazide AdvReac DIZZINESS Verified 11/22/16 14:10 - Medications Medications: Current Medications Acetaminophen (Tylenol 325mg Tab) 650 mg PO Q6 PRN PRN Reason: Headache Last Admin: 11/25/16 00:21 Dose: 650 mg Albuterol (Ventolin Hfa 90 Mcg/Actuation (8 G)) 2 puff IH Q4 PRN PRN Reason: Shortness of Breath Amlodipine Besylate (Norvasc) 10 mg PO DAILY [facility] Last Admin: 11/25/16 08:56 Dose: 10 mg Ascorbic Acid (Vitamin C 500 Mg Tab) 500 mg PO DAILY [facility] Last Admin: 11/25/16 08:56 Dose: 500 mg Aspirin (Ecotrin) 81 mg PO DAILY [facility] Last Admin: 11/25/16 08:53 Dose: 81 mg Atorvastatin Calcium (Lipitor) 20 mg PO HS [facility] Carvedilol (Coreg) 25 mg PO BID@0900,2100 [facility] Last Admin: 11/25/16 08:53 Dose: 25 mg Divalproex Sodium (Depakote Dr(*Bid*)) 1,000 mg PO HS [facility] Last Admin: 11/24/16 22:01 Dose: 1,000 mg Docusate Sodium (Colace) 100 mg PO BID [facility] Last Admin: 11/25/16 08:53 Dose: 100 mg Enoxaparin Sodium (Lovenox) 40 mg SC DAILY [facility] PRN Reason: Protocol Last Admin: 11/25/16 08:55 Dose: 40 mg Ergocalciferol (Drisdol 50,000 Intl Units Cap) 1 cap PO Q7D [facility] Last Admin: 11/24/16 20:43 Dose: 1 cap Fluphenazine HCl (Prolixin) 2.5 mg PO Q12 [facility] Glipizide (Glucotrol) 10 mg PO ACBD [facility] Last Admin: 11/25/16 08:55 Dose: 10 mg Insulin Detemir (Levemir) 44 units SC HS [facility] Insulin Human Lispro (Humalog) 8 units SC AC [facility] Last Admin: 11/25/16 08:53 Dose: 8 u Insulin Human Lispro (Humalog) 0 units SC ACHS [facility] PRN Reason: Protocol Last Admin: 11/25/16 08:55 Dose: Not Given Lisinopril (Zestril) 10 mg PO DAILY [facility] Last Admin: 11/25/16 08:56 Dose: 10 mg Meclizine HCl (Antivert) 25 mg PO BID [facility] Last Admin: 11/25/16 08:52 Dose: 25 mg Metformin HCl (Glucophage) 1,000 mg PO BID [facility] Last Admin: 11/25/16 08:53 Dose: 1,000 mg Multivitamins/Minerals (Therapeutic-M Tab) 1 tab PO DAILY [facility] Last Admin: 11/25/16 08:56 Dose: 1 tab Pantoprazole Sodium (Protonix Ec Tab) 40 mg PO DAILY [facility] Last Admin: 11/25/16 08:56 Dose: 40 mg Results - Vital Signs Recent Vital Signs: Last Vital Signs Temp 98 F 11/25/16 08:15 Pulse 86 11/25/16 08:56 Resp 20 11/25/16 08:15 BP 165/95 H 11/25/16 08:56 Pulse Ox 95 11/25/16 08:15 - Labs Result Diagrams: 11/25/16 05:55 11/25/16 05:55 Labs: Laboratory Results - last 24 hr 11/24/16 11/24/16 11/24/16 05:10 07:48 11:57 WBC RBC Hgb Hct MCV MCH MCHC RDW Plt Count MPV Neut % (Auto) Lymph % (Auto) [place] % (Auto) Eos % (Auto) Baso % (Auto) Neut # Lymph # [place] # Eos # Baso # pO2 VBG pH VBG pCO2 VBG HCO3 VBG Total CO2 VBG O2 Sat (Calc) VBG Base Excess VBG Potassium Sodium Chloride Glucose Lactate FiO2 Blood Gas Comments Crit Value Called To Crit Value Called By Crit Value Read Back Blood Gas Notified Time Potassium Carbon Dioxide Anion Gap BUN Creatinine Est GFR ( Amer) Est GFR (Non-Af Amer) POC Glucose (mg/dL) 230 H 219 H 317 H Random Glucose Calcium Phosphorus Magnesium Total Bilirubin AST ALT Alkaline Phosphatase Total Protein Albumin Globulin Albumin/Globulin Ratio Venous Blood Potassium Urine Color Urine Clarity Urine pH Ur Specific [place] Urine Protein Urine Glucose (UA) Urine Ketones Urine Blood Urine Nitrate Urine Bilirubin Urine Urobilinogen Ur Leukocyte Esterase Urine RBC (Auto) Urine Microscopic WBC Ur Squamous Epith Cells 11/24/16 11/24/16 11/24/16 17:49 18:40 19:07 WBC 6.5 RBC 4.15 L Hgb 13.5 Hct 40.6 MCV 97.9 H MCH 32.6 H MCHC 33.3 RDW 13.3 Plt Count 170 MPV 8.7 Neut % (Auto) 74.4 Lymph % (Auto) 15.7 L [place] % (Auto) 8.0 Eos % (Auto) 1.0 Baso % (Auto) 0.9 Neut # 4.8 Lymph # 1.0 [place] # 0.5 Eos # 0.1 Baso # 0.1 pO2 VBG pH VBG pCO2 VBG HCO3 VBG Total CO2 VBG O2 Sat (Calc) VBG Base Excess VBG Potassium Sodium Chloride Glucose Lactate FiO2 Blood Gas Comments Crit Value Called To Crit Value Called By Crit Value Read Back Blood Gas Notified Time Potassium Carbon Dioxide Anion Gap BUN Creatinine Est GFR ( Amer) Est GFR (Non-Af Amer) POC Glucose (mg/dL) 389 H 418 H* Random Glucose Calcium Phosphorus Magnesium Total Bilirubin AST ALT Alkaline Phosphatase Total Protein Albumin Globulin Albumin/Globulin Ratio Venous Blood Potassium Urine Color Urine Clarity Urine pH Ur Specific [place] Urine Protein Urine Glucose (UA) Urine Ketones Urine Blood Urine Nitrate Urine Bilirubin Urine Urobilinogen Ur Leukocyte Esterase Urine RBC (Auto) Urine Microscopic WBC Ur Squamous Epith Cells 11/24/16 11/24/16 11/24/16 19:10 19:20 21:07 WBC RBC Hgb Hct MCV MCH MCHC RDW Plt Count MPV Neut % (Auto) Lymph % (Auto) [place] % (Auto) Eos % (Auto) Baso % (Auto) Neut # Lymph # [place] # Eos # Baso # pO2 44 VBG pH 7.38 VBG pCO2 45 VBG HCO3 25.2 VBG Total CO2 28.0 VBG O2 Sat (Calc) 85.4 H VBG Base Excess 1.0 VBG Potassium 4.2 Sodium 135.0 137 Chloride 101.0 102 Glucose 431 H* Lactate 1.4 FiO2 21.0 Blood Gas Comments Copy given to rn Crit Value Called To Bebe hawthorne rn Crit Value Called By 292 Crit Value Read Back Y Blood Gas Notified Time 1914 Potassium 4.3 Carbon Dioxide 25 Anion Gap 14 BUN 15 Creatinine 0.9 Est GFR ( Amer) > 60 Est GFR (Non-Af Amer) > 60 POC Glucose (mg/dL) 266 H Random Glucose 389 H Calcium 9.0 Phosphorus 3.1 Magnesium 1.5 L Total Bilirubin 0.9 AST 30 ALT 64 Alkaline Phosphatase 102 Total Protein 7.1 Albumin 3.9 Globulin 3.2 Albumin/Globulin Ratio 1.2 Venous Blood Potassium 4.2 Urine Color Urine Clarity Urine pH Ur Specific [place] Urine Protein Urine Glucose (UA) Urine Ketones Urine Blood Urine Nitrate Urine Bilirubin Urine Urobilinogen Ur Leukocyte Esterase Urine RBC (Auto) Urine Microscopic WBC Ur Squamous Epith Cells 11/24/16 11/24/16 11/25/16 21:44 21:47 05:52 WBC RBC Hgb Hct MCV MCH MCHC RDW Plt Count MPV Neut % (Auto) Lymph % (Auto) [place] % (Auto) Eos % (Auto) Baso % (Auto) Neut # Lymph # [place] # Eos # Baso # pO2 VBG pH VBG pCO2 VBG HCO3 VBG Total CO2 VBG O2 Sat (Calc) VBG Base Excess VBG Potassium Sodium Chloride Glucose Lactate FiO2 Blood Gas Comments Crit Value Called To Crit Value Called By Crit Value Read Back Blood Gas Notified Time Potassium Carbon Dioxide Anion Gap BUN Creatinine Est GFR ( Amer) Est GFR (Non-Af Amer) POC Glucose (mg/dL) 250 H 187 H Random Glucose Calcium Phosphorus Magnesium Total Bilirubin AST ALT Alkaline Phosphatase Total Protein Albumin Globulin Albumin/Globulin Ratio Venous Blood Potassium Urine Color Straw Urine Clarity Clear Urine pH 6.0 Ur Specific [place] 1.006 Urine Protein Negative Urine Glucose (UA) >=500 Urine Ketones Negative Urine Blood Negative Urine Nitrate Negative Urine Bilirubin Negative Urine Urobilinogen 0.2-1.0 Ur Leukocyte Esterase Neg Urine RBC (Auto) 2 Urine Microscopic WBC 1 Ur Squamous Epith Cells < 1 11/25/16 11/25/16 05:55 05:55 WBC 5.6 RBC 3.84 L Hgb 12.7 Hct 37.5 MCV 97.7 H MCH 33.1 H MCHC 33.9 RDW 13.5 Plt Count 158 MPV 8.9 Neut % (Auto) 70.9 Lymph % (Auto) 19.2 L [place] % (Auto) 7.8 Eos % (Auto) 1.4 Baso % (Auto) 0.7 Neut # 4.0 Lymph # 1.1 [place] # 0.4 Eos # 0.1 Baso # 0.0 pO2 VBG pH VBG pCO2 VBG HCO3 VBG Total CO2 VBG O2 Sat (Calc) VBG Base Excess VBG Potassium Sodium 144 Chloride 108 H Glucose Lactate FiO2 Blood Gas Comments Crit Value Called To Crit Value Called By Crit Value Read Back Blood Gas Notified Time Potassium 4.0 Carbon Dioxide 27 Anion Gap 13 BUN 11 Creatinine 0.8 Est GFR ( Amer) > 60 Est GFR (Non-Af Amer) > 60 POC Glucose (mg/dL) Random Glucose 162 H Calcium 8.4 Phosphorus Magnesium Total Bilirubin AST ALT Alkaline Phosphatase Total Protein Albumin Globulin Albumin/Globulin Ratio Venous Blood Potassium Urine Color Urine Clarity Urine pH Ur Specific [place] Urine Protein Urine Glucose (UA) Urine Ketones Urine Blood Urine Nitrate Urine Bilirubin Urine Urobilinogen Ur Leukocyte Esterase Urine RBC (Auto) Urine Microscopic WBC Ur Squamous Epith Cells
--- NOTE | 2016-11-25 11:08 | CON ---
DATE: ENDOCRINOLOGY CONSULT ROOM: 660 HISTORY OF PRESENT ILLNESS: This is a 60-year-old male with known history of type 2 diabetes and hypertension, presenting here with behavioral disturbances and now being referred for diabetic evaluation because of persistent hyperglycemic accelerations as noted thereof. PAST MEDICAL HISTORY: As mentioned above, history of type 2 diabetes, currently on a combination of metformin given as 1 g b.i.d. and glipizide given as 10 mg b.i.d. He has also basal insulin given as 36 units subcu at bedtime daily as ordered. History of hypertension and dyslipidemia, history of obstructive sleep apnea, history of bipolar disorder with underlying chronic schizoaffective disorder, previously on psychotropic medications as noted. FAMILY HISTORY: Positive for hypertension and heart disease. SOCIAL HISTORY: The patient has supportive family. No known substance use. REVIEW OF SYSTEMS: As mentioned above, admits to generalized body weakness with easy fatigability and tiredness and suboptimal energy level. No chest pains, palpitations, or PNDs. His oral intake is quite variable with habitual constipation. PHYSICAL EXAMINATION: GENERAL: This is an average-built male, in no apparent distress. VITAL SIGNS: Blood pressure of 140/80, pulse of 70 beats per minute and regular, temperature 98, respirations 20, height is 5 feet 9 inches, weight is 226 pounds. HEENT: Head is normocephalic. Eyes anicteric with pink conjunctivae. Funduscopy not done at this time. Ears, nose, and throat are otherwise normal. NECK: Supple. Thyroid gland is normal in size. No carotid bruits or cervical adenopathy. CARDIOPULMONARY: Adynamic precordium. S1 and S2, rapid and regular. LUNGS: Clear to auscultation. ABDOMEN: Flat and soft with positive bowel sounds. EXTREMITIES: No peripheral edema. Pulses are +2 bilaterally. LABORATORY DATA: The chemistry showed BUN of 15, sodium 137, potassium 4.3, chloride 102, CO2 of 25, glucose 389, and creatinine 0.9 with glucose levels ranging from 250 to 266 and 395 mg/dL. ASSESSMENT: This is a 60-year-old male with uncontrolled and decompensated type 2 insulin requiring diabetes, now being followed closely for metabolic management. He also has diabetic microvascular complications of retinopathy, polyneuropathy and nephropathy. PLAN OF MANAGEMENT: We will obtain serial chemistries and supplement accordingly as needed. We will follow. His glycemic profile has been fluctuating and so we will continue the glipizide given as 10 mg p.o. b.i.d. after meals and we will follow up with you. Whitney Villeda MD
[2016-11-25] MEDS: FLUPHENAZINE PO SCH ×3 (11:54→21:10)
--- NOTE | 2016-11-25 18:34 | PN ---
ENDOCRINOLOGY FOLLOWUP NOTE DATE: LOCATION: Room 667. SUBJECTIVE: This is a 60-year-old male with recent uncontrolled type 2 insulin-requiring diabetes presenting here with behavioral disturbances and associated hyperglycemic accelerations and is now being followed closely for metabolic management. His glycemic levels are fluctuating because of the variability of his oral intake as noted. His glucose levels today have ranged from 72 to 107-187 mg/dL. LABORATORY DATA: His latest chemistries showed a BUN of 11, sodium 144, potassium 4.0, chloride 108, CO2 of 27, glucose 162, and creatinine 0.8. His hemoglobin A1c is 9.5% which is actually elevated and indicative of suboptimal metabolic control of his diabetic condition. ASSESSMENT AND PLAN: So, at this time, we will actually modify his prandial insulin and lower the Humalog to 4 units subcu t.i.d. before meals as ordered. We will titrate incrementally as indicated to optimize metabolic control. We will also continue the basal insulin given as Levemir at 44 units subcu at bedtime daily as given. We will continue the low-dose correction scale using Humalog insulin as ordered. We will continue the dual oral hypoglycemic drug therapy as given with metformin given as 1 g b.i.d. and glipizide as 10 mg t.i.d. before meals as ordered. We will continue also the low-dose correction scale using Humalog insulin as given. We will obtain serial chemistries and supplement accordingly as needed. We will follow. Whitney Villeda MD
--- NOTE | 2016-11-25 18:37 | CP.PCM.PN ---
Subjective - Date & Time of Evaluation Date of Evaluation: 11/25/16 Time of Evaluation: 10:30 - Subjective Subjective: Pt seen pacing the unit , very manic, shaking my hand each time he meets me in the hallway he denies any sxs no CP no SOB no abd pain no fever he states he is fine and wants to go home he doees not want to john any new med and want only to take meds that h normally takes at home. Objective - Vital Signs/Intake and Output Vital Signs (last 24 hours): Temp Pulse Resp BP Pulse Ox 98.3 F 67 20 144/75 96 11/25/16 16:48 11/25/16 18:26 11/25/16 16:48 11/25/16 18:26 11/25/16 16:48 - Medications Medications: Current Medications Acetaminophen (Tylenol 325mg Tab) 650 mg PO Q6 PRN PRN Reason: Headache Last Admin: 11/25/16 00:21 Dose: 650 mg Albuterol (Ventolin Hfa 90 Mcg/Actuation (8 G)) 2 puff IH Q4 PRN PRN Reason: Shortness of Breath Amlodipine Besylate (Norvasc) 10 mg PO DAILY [facility] Last Admin: 11/25/16 08:56 Dose: 10 mg Ascorbic Acid (Vitamin C 500 Mg Tab) 500 mg PO DAILY [facility] Last Admin: 11/25/16 08:56 Dose: 500 mg Aspirin (Ecotrin) 81 mg PO DAILY [facility] Last Admin: 11/25/16 08:53 Dose: 81 mg Atorvastatin Calcium (Lipitor) [address] [facility] Carvedilol (Coreg) 25 mg PO BID@0900,2100 [facility] Last Admin: 11/25/16 08:53 Dose: 25 mg Divalproex Sodium (Depakote Dr(*Bid*)) 1,000 mg PO HS [facility] Last Admin: 11/24/16 22:01 Dose: 1,000 mg Docusate Sodium (Colace) 100 mg PO BID [facility] Last Admin: 11/25/16 16:26 Dose: Not Given Enoxaparin Sodium (Lovenox) 40 mg SC DAILY [facility] PRN Reason: Protocol Last Admin: 11/25/16 08:55 Dose: 40 mg Ergocalciferol (Drisdol 50,000 Intl Units Cap) 1 cap PO Q7D [facility] Last Admin: 11/24/16 20:43 Dose: 1 cap Fluphenazine HCl (Prolixin) 2.5 mg PO Q12 [facility] Last Admin: 11/25/16 12:06 Dose: Not Given Glipizide (Glucotrol) 10 mg PO ACBD [facility] Last Admin: 11/25/16 08:55 Dose: 10 mg Insulin Detemir (Levemir) 44 units SC HS [facility] Insulin Human Lispro (Humalog) 0 units SC ACHS [facility] PRN Reason: Protocol Last Admin: 11/25/16 17:24 Dose: Not Given Insulin Human Lispro (Humalog) 4 units SC AC [facility] Lisinopril (Zestril) 10 mg PO BID [facility] Last Admin: 11/25/16 18:26 Dose: Not Given Meclizine HCl (Antivert) 25 mg PO BID [facility] Last Admin: 11/25/16 16:26 Dose: Not Given Metformin HCl (Glucophage) 1,000 mg PO BID [facility] Last Admin: 11/25/16 18:25 Dose: Not Given Multivitamins/Minerals (Therapeutic-M Tab) 1 tab PO DAILY [facility] Last Admin: 11/25/16 08:56 Dose: 1 tab Pantoprazole Sodium (Protonix Ec Tab) 40 mg PO DAILY [facility] Last Admin: 11/25/16 08:56 Dose: 40 mg - Labs Labs: 11/25/16 05:55 11/25/16 05:55 - Constitutional Appears: No Acute Distress - Head Exam Head Exam: NORMAL INSPECTION, NORMOCEPHALIC - Eye Exam Eye Exam: EOMI, Normal appearance, PERRL Pupil Exam: NORMAL ACCOMODATION - ENT Exam ENT Exam: Mucous Membranes Moist, Normal External Ear Exam - Neck Exam Neck Exam: Full ROM. absent: Meningismus - Respiratory Exam Respiratory Exam: NORMAL BREATHING PATTERN. absent: Rales, Wheezes, Respiratory Distress - Cardiovascular Exam Cardiovascular Exam: REGULAR RHYTHM, +S1, +S2 - GI/Abdominal Exam GI & Abdominal Exam: Soft, Normal Bowel Sounds. absent: Tenderness - Extremities Exam Extremities Exam: Full ROM, Normal Capillary Refill. absent: Calf Tenderness - Back Exam Back Exam: Full ROM. absent: CVA tenderness (L), CVA tenderness (R), paraspinal tenderness, vertebral tenderness - Neurological Exam Neurological Exam: Alert, Awake, CN II-XII Intact, Normal Gait, Oriented x3 Neuro motor strength exam: Left Upper Extremity: 5, Right Upper Extremity: 5, Left Lower Extremity: 5, Right Lower Extremity: 5 - Psychiatric Exam Psychiatric exam: Manic Additional comments: pacing around the floor - Skin Skin Exam: Dry, Normal Color, Warm Assessment and Plan (1) Uncontrolled diabetes mellitus Status: Chronic (2) Hyperglycemia Status: Acute (3) Dyslipidemia Status: Chronic (4) HTN (hypertension) Status: Chronic (5) Bipolar disorder Status: Chronic (6) DVT prophylaxis Status: Acute - Assessment and Plan (Free Text) Assessment: 60 y/o gent with hx of DM,hTN, Bipolar Dis/Schizophrenia, was brought in because of bizarre behavior, noncompliant with his meds the past few days. Found to have uncontrolled DM. Glucose now better controlled. Awaiting [facility] bed for Involuntary Psych admission. (1) Uncontrolled diabetes mellitus Status: Chronic restarted his DM meds cont Metformin, Glucotrol and Levemir Endo Dr Villeda consulted Accucheck with coverage (2) Hyperglycemia sec to noncompliance Status: Acute as above (3) Dyslipidemia Status: Chronic cont statin (4) HTN (hypertension) Status: Chronic cont Norvasc, Lisinopril and Coreg ( home meds) (5) Bipolar disorder Status: Chronic Psych consulted Dr Chase rec Prolixin and Haldol prn however pt refused to take meds awaiting bed at [facility] for Involuntary Psych admission 1:1 Obs (6) DVT prophylaxis Status: Acute Lovenox
[2016-11-25] MEDS: Divalproex 500 mg DR(BID formulation) PO SCH (21:52)
[2016-11-25] MEDS ORDERED: Insulin Detemir 100 Units/ml Inj SC SCH (22:00)
--- NOTE | 2016-11-25 22:08 | CP.PCM.DIS ---
Provider - Provider Date of Admission: 11/24/16 18:49 Attending physician: Eder Smyth MD Consults: Dr. Villeda Endocrinology Dr Foote Psychiatrist Time Spent in preparation of Discharge (in minutes): 25 Hospital Course - Lab Results Lab Results: Most Recent Lab Values WBC 5.6 K/uL (4.8-10.8) 11/25/16 05:55 RBC 3.84 Mil/uL (4.40-5.90) L 11/25/16 05:55 Hgb 12.7 g/dL (12.0-18.0) 11/25/16 05:55 Hct 37.5 % (35.0-51.0) 11/25/16 05:55 MCV 97.7 fl (80.0-94.0) H 11/25/16 05:55 MCH 33.1 pg (27.0-31.0) H 11/25/16 05:55 MCHC 33.9 g/dL (33.0-37.0) 11/25/16 05:55 RDW 13.5 % (11.5-14.5) 11/25/16 05:55 Plt Count 158 K/uL (130-400) 11/25/16 05:55 MPV 8.9 fl (7.2-11.7) 11/25/16 05:55 Neut % (Auto) 70.9 % (50.0-75.0) 11/25/16 05:55 Lymph % (Auto) 19.2 % (20.0-40.0) L 11/25/16 05:55 [place] % (Auto) 7.8 % (0.0-10.0) 11/25/16 05:55 Eos % (Auto) 1.4 % (0.0-4.0) 11/25/16 05:55 Baso % (Auto) 0.7 % (0.0-2.0) 11/25/16 05:55 Neut # 4.0 K/uL (1.8-7.0) 11/25/16 05:55 Lymph # 1.1 K/uL (1.0-4.3) 11/25/16 05:55 [place] # 0.4 K/uL (0.0-0.8) 11/25/16 05:55 Eos # 0.1 K/uL (0.0-0.7) 11/25/16 05:55 Baso # 0.0 K/uL (0.0-0.2) 11/25/16 05:55 pO2 44 mm/Hg (30-55) 11/24/16 19:10 VBG pH 7.38 (7.32-7.43) 11/24/16 19:10 VBG pCO2 45 mmHg (40-60) 11/24/16 19:10 VBG HCO3 25.2 mmol/L 11/24/16 19:10 VBG Total CO2 28.0 mmol/L (22-28) 11/24/16 19:10 VBG O2 Sat (Calc) 85.4 % (40-65) H 11/24/16 19:10 VBG Base Excess 1.0 mmol/L (0.0-2.0) 11/24/16 19:10 VBG Potassium 4.2 mmol/L (3.6-5.2) 11/24/16 19:10 Sodium 135.0 mmol/L (132-148) 11/24/16 19:10 Chloride 101.0 mmol/L (98-107) 11/24/16 19:10 Glucose 431 mg/dL (75-110) H* 11/24/16 19:10 Lactate 1.4 mmol/L (0.7-2.1) 11/24/16 19:10 FiO2 21.0 % 11/24/16 19:10 Blood Gas Comments Copy given to justin 11/24/16 19:10 Crit Value Called To Bebe hawthorne rn 11/24/16 19:10 Crit Value Called By Js 11/24/16 19:10 Crit Value Read Back Y 11/24/16 19:10 Blood Gas Notified Time 191411/24/16 19:10 Sodium 144 mmol/l (132-148) 11/25/16 05:55 Potassium 4.0 MMOL/L (3.6-5.0) 11/25/16 05:55 Chloride 108 mmol/L (98-107) H 11/25/16 05:55 Carbon Dioxide 27 mmol/L (22-30) 11/25/16 05:55 Anion Gap 13 (10-20) 11/25/16 05:55 BUN 11 mg/dl (9-20) 11/25/16 05:55 Creatinine 0.8 mg/dL (0.8-1.5) 11/25/16 05:55 Est GFR ( Amer) > 60 11/25/16 05:55 Est GFR (Non-Af Amer) > 60 11/25/16 05:55 POC Glucose (mg/dL) 163 mg/dL (65-110) H 11/25/16 21:08 Random Glucose 162 mg/dL (75-110) H 11/25/16 05:55 Hemoglobin A1c 9.5 % (4.2-6.5) H 11/25/16 05:55 Calcium 8.4 mg/dL (8.4-10.2) 11/25/16 05:55 Phosphorus 3.1 mg/dl (2.5-4.5) 11/24/16 19:20 Magnesium 1.5 MG/DL (1.6-2.3) L 11/24/16 19:20 Total Bilirubin 0.9 mg/dl (0.2-1.3) 11/24/16 19:20 AST 30 U/L (17-59) 11/24/16 19:20 ALT 64 U/L (21-72) 11/24/16 19:20 Alkaline Phosphatase 102 U/L (38-126) 11/24/16 19:20 Total Protein 7.1 G/DL (6.3-8.2) 11/24/16 19:20 Albumin 3.9 g/dL (3.5-5.0) 11/24/16 19:20 Globulin 3.2 gm/dL (2.2-3.9) 11/24/16 19:20 Albumin/Globulin Ratio 1.2 (1.0-2.1) 11/24/16 19:20 Venous Blood Potassium 4.2 mmol/L (3.6-5.2) 11/24/16 19:10 Urine Color Straw (YELLOW) 11/24/16 21:47 Urine Clarity Clear (Clear) 11/24/16 21:47 Urine pH 6.0 (5.0-8.0) 11/24/16 21:47 Ur Specific [place] 1.006 (1.003-1.030) 11/24/16 21:47 Urine Protein Negative mg/dL (NEGATIVE) 11/24/16 21:47 Urine Glucose (UA) >=500 mg/dL (Normal) 11/24/16 21:47 Urine Ketones Negative mg/dL (NEGATIVE) 11/24/16 21:47 Urine Blood Negative (NEGATIVE) 11/24/16 21:47 Urine Nitrate Negative (NEGATIVE) 11/24/16 21:47 Urine Bilirubin Negative (NEGATIVE) 11/24/16 21:47 Urine Urobilinogen 0.2-1.0 mg/dL (0.2-1.0) 11/24/16 21:47 Ur Leukocyte Esterase Neg Ziggy/uL (Negative) 11/24/16 21:47 Urine RBC (Auto) 2 /hpf (0-3) 11/24/16 21:47 Urine Microscopic WBC 1 /hpf (0-5) 11/24/16 21:47 Ur Squamous Epith Cells < 1 /hpf (0-5) 11/24/16 21:47 Urine Bacteria Rare (<OCC) 11/22/16 17:00 Urine Opiates Screen Negative (NEGATIVE) 11/22/16 17:00 Urine Methadone Screen Negative (NEGATIVE) 11/22/16 17:00 Ur Barbiturates Screen Negative (NEGATIVE) 11/22/16 17:00 Ur Phencyclidine Scrn Negative (NEGATIVE) 11/22/16 17:00 Ur Amphetamines Screen Negative (NEGATIVE) 11/22/16 17:00 U Benzodiazepines Scrn Negative (NEGATIVE) 11/22/16 17:00 U Oth Cocaine Metabols Negative (NEGATIVE) 11/22/16 17:00 U Cannabinoids Screen Negative (NEGATIVE) 11/22/16 17:00 Alcohol, Quantitative < 10 mg/dl (0-10) 11/22/16 17:00 - Hospital Course Hospital Course: 60 yo male with history of DM2, HTN and Bipolar DO was brought in by EMS because of bizarre behavior. He was screened for admission to [facility] but could not be medically cleared because of persistent hyperglycemia. Now that the Blood Glucose is controlled he is cleared for transfer to [facility] for Involuntary Psychiatric management. (1) Uncontrolled diabetes mellitus Status: Chronic restarted his DM meds cont Metformin, Glucotrol and Levemir Endo Dr Villeda consulted Accucheck with coverage (2) Hyperglycemia sec to noncompliance Status: Acute as above (3) Dyslipidemia Status: Chronic cont statin (4) HTN (hypertension) Status: Chronic cont Norvasc, Lisinopril and Coreg ( home meds) (5) Bipolar disorder Status: Chronic Psych consulted Dr Dary bertrand Prolixin and Haldol prn however pt refused to take meds bed at [facility] for Involuntary Psych admission 1:1 Obs (6) DVT prophylaxis Status: Acute Lovenox - Date & Time of H&P Date of H&P: 11/24/16 Time of H&P: 22:07 Discharge Exam - Head Exam Head Exam: NORMAL INSPECTION, NORMOCEPHALIC Discharge Plan - Follow Up Plan Condition: FAIR Disposition: DISCHARGE TO PSYCH HOSPITAL Instructions: Bipolar Disorder (DC), Diabetes Mellitus Type 2 in Adults (DC), Hypertension (DC), Hypertension (GEN) Additional Instructions: Transfer to [facility] Psychiatric unit for inpatient Psychiatric management.
[2016-11-26 00:47] VITALS: BP 145/80; PULSE 86; RESP 19; TEMP 97.5
[2016-11-26] MEDS ORDERED: Insulin Lispro (humaLOG) 100 Units/ml Inj SC SCH (07:30)
--- NOTE | 2016-11-27 02:41 | PN ---
DATE: LOCATION: In the room #223 SUBJECTIVE: This is a 60-year-old male with recent uncontrolled type 2 insulin-requiring diabetes, presenting here with generalized anxiety and major depression and also being followed closely for metabolic management because of recent hyperglycemic accelerations as noted thereof. LABORATORY DATA: His latest chemistry showed a BUN of 11, sodium 144, potassium 4.0, chloride 108, CO2 of 27, glucose 162 and creatinine 0.8. ASSESSMENT AND PLAN: His glucose values are fluctuating because of the variability of his oral intake as noted thereof. So at this time, we will continue the same basal and bolus insulin regimen to allow for dose equilibration and keep him on the Levemir given as 44 units subcu at bedtime daily as ordered. We will continue the Humalog given as 4 units subcu t.i.d. before meals as given. We will titrate incrementally as indicated to optimize metabolic control. We will follow. Whitney Villeda MD
[2016-11-29 09:11] VITALS: O2SAT 100
== END 2016-11-26 04:30 ==
LOC: H.ER 14:02 → INTOOBSV 11-24 18:49 → H.ERHOLD 11-24 18:49 → H.MEDSURG1 11-24 21:28
DX: E11.65 Type 2 diabetes mellitus with hyperglycemia (principal); E11.319 Type 2 diabetes mellitus with unspecified diabetic retinopathy without macular edema; E11.42 Type 2 diabetes mellitus with diabetic polyneuropathy; E78.00 Pure hypercholesterolemia, unspecified; E78.5 Hyperlipidemia, unspecified; F31.9 Bipolar disorder, unspecified; F41.1 Generalized anxiety disorder; G47.33 Obstructive sleep apnea (adult) (pediatric); Z79.4 Long term (current) use of insulin; Z91.14 Patient's other noncompliance with medication regimen; E11.21 Type 2 diabetes mellitus with diabetic nephropathy; I10 Essential (primary) hypertension; F25.9 Schizoaffective disorder, unspecified
CPT/HCPCS: 36415; 71010; 80048; 80053; 80320; 80324; 80345; 80346; 80349; 80353; 80358; 80361; 81003; 82803; 82948; 83036; 83735; 83992; 84100; 85025; 85027; 93005; 96372; 99285; G0378; J1630; J1650; J2060; J3475; J7040